=== PATIENT | male | born 1950 | race Caucasian/White ===

== ENCOUNTER 2016-09-24 14:16 | Observation (INO) | payer MEDICAID, MEDICARE ==
[~2016-09-24 14:16] MED LIST: Metoprolol Succinate 100 mg XL Tab PO SCH
[2016-09-24 16:34] LABS: BASO # 0.1 K/uL (0.0-0.2); BASO % 0.9 % (0.0-2.0); EOS # 0.2 K/uL (0.0-0.7); EOS % 4.2 % (0.0-4.0); HEMOGLOBIN 10.9 g/dL (12.0-18.0); LYMPH # 1.6 K/uL (1.0-4.3); LYMPH % 27.6 % (20.0-40.0); MEAN CELL VOLUME 97.8 fl (80.0-94.0); MEAN CORPUSCULAR HEMOGLOBIN 32.8 pg (27.0-31.0); MEAN CORPUSCULAR HGB CONC 33.5 g/dL (33.0-37.0); MEAN PLATELET VOLUME 8.5 fl (7.2-11.7); MONO # 0.7 K/uL (0.0-0.8); MONO % 12.7 % (0.0-10.0); NEUT # 3.1 K/uL (1.8-7.0); NEUT % 54.6 % (50.0-75.0); NRBC % 0.3 % (0.0-0.0); RBC 3.33 Mil/uL (4.40-5.90); RED CELL DISTRIBUTION WIDTH 14.7 % (11.5-14.5); WHITE BLOOD COUNT 5.6 K/uL (4.8-10.8)
--- NOTE | 2016-09-24 16:37 | ED PDOC ---
HPI: Chest Pain Time Seen by Provider: 09/24/16 15:09 Chief Complaint (Nursing): Chest Pain Chief Complaint (Provider): Chest pain History Per: Patient History/Exam Limitations: no limitations Onset/Duration Of Symptoms: Days (x1) Additional Complaint(s): Vivek Govea is a 65 year old male with a past medical history of diabetes, hypertension, chronic shortness of breath, and is on hemodialysis presenting to the ED for bilateral lower neck, bilateral shoulder, and left arm pain occurring since yesterday. The patient states he gets hemodialysis treatments on Mondays, Wednesdays, and Fridays with his last treatment completed yesterday. Since then he has had onset of pain, relieved with sublingual nitroglycerin. The patient states his pain worsens when he is ambulating or lying down. He denies chest pain or palpitations. PMD: Kip Minor MD Past Medical History Reviewed: Historical Data, Nursing Documentation, Vital Signs Vital Signs: Last Vital Signs Temp 98.3 F 09/24/16 14:29 Pulse 70 09/24/16 14:29 Resp 20 09/24/16 14:29 BP 157/73 H 09/24/16 14:29 Pulse Ox 99 09/24/16 16:40 - Medical History PMH: Anemia, CAD, Diabetes, HTN, End Stage Renal Disease, Chronic Kidney Disease Denies: Alzheimer's Disease, Anxiety, Arthritis, Asthma, Atrial Fibrillation , Bipolar Disorder, Bronchitis, Cardia Arrhythmia, CHF, COPD, Crohn's Disease, Dementia, Depression, Diverticulitis, Emphysema, Fractures, Gastritis, Gall Bladder Disease, HIV, Hypercholesterolemia, Hyperthyroidism, Hypothyroidism, Kidney Stones, Migraine, Mitral Valve Prolapse, Multiple Sclerosis, Osteoporosis , Pancreatitis, Paranoia, Parkinson's Disease, Peripheral Edema, Pneumonia, Post Traumatic Stress Disorder, Pulmonary Embolism, Rheumatoid Arthritis, Schizophrenia, Seizures, Sickle Cell Disease, Sexually Transmitted Disease, Sleep Apnea, TIA - Surgical History Surgical History: CABG (December 15, 2013) Denies: Appendectomy, Carotid Endarterectomy, Cholecystectomy, Coronary Stent , Pacemaker, Tonsillectomy - Family History Family History: States: Diabetes - Social History Current smoker - smoking cessation education provided: No Ex-Smoker (has not smoked in the last 12 months): No Alcohol: None Drugs: Denies - Home Medications Home Medications: Ambulatory Orders Medication Instructions Recorded Acetaminophen/Diphenhydramine 1 tab PO HS 08/10/17 [Tylenol Pm Ex-Strength Caplet] Allopurinol [Zyloprim] 100 mg PO DAILY 09/24/16 Aspirin [Ecotrin] 81 mg PO DAILY 09/24/16 Atorvastatin [Lipitor] 40 mg PO DAILY 09/24/16 Cinacalcet [Sensipar] 30 mg PO DAILY 09/24/16 DiphenhydrAMINE [Benadryl] 25 mg PO BID PRN 09/24/16 Docusate [Colace] 100 mg PO DAILY PRN 09/24/16 Ergocalciferol (Vitamin D2) 50,000 unit PO SUN 09/24/16 [Vitamin D2] Insulin Glargine,Hum.rec.anlog 20 unit SC HS 09/24/16 [Lantus] Insulin Lispro [humALOG] 6 unit SC BID 09/24/16 Isosorbide Mononitrate [Imdur] 30 mg PO DAILY 09/24/16 Metoprolol Succinate [Toprol XL] 100 mg PO DAILY 09/24/16 Omeprazole [Omeprazole] 40 mg PO DAILY 09/24/16 Pioglitazone [Actos] 30 mg PO DAILY 09/24/16 Sevelamer Carbonate [Renvela] 2,400 mg PO TID 09/24/16 amLODIPine [Norvasc] 5 mg PO HS 09/24/16 hydrALAZINE [Apresoline] 50 mg PO TID 09/24/16 - Allergies Allergies/Adverse Reactions: Allergies Allergy/AdvReac Type Severity Reaction Status Date / Time codeine Allergy VOMITING Verified 09/24/16 15:35 Penicillins Allergy DIZZINESS Verified 09/24/16 15:35 Review of Systems ROS Statement: Except As Marked, All Systems Reviewed And Found Negative Cardiovascular: Negative for: Chest Pain, Palpitations Musculoskeletal: Positive for: Neck Pain (bilateral lower neck ), Shoulder Pain (bilateral shoulder), Arm Pain (left arm) Physical Exam - Reviewed Nursing Documentation Reviewed: Yes Vital Signs Reviewed: Yes - Physical Exam Appears: Positive for: Well, Non-toxic, No Acute Distress Head Exam: Positive for: ATRAUMATIC, NORMAL INSPECTION, NORMOCEPHALIC Skin: Positive for: Normal Color, Warm, DRY Eye Exam: Positive for: EOMI, Normal appearance, PERRL ENT: Positive for: Normal ENT Inspection Neck: Positive for: Normal, Painless ROM, Supple (no neck tenderness ) Cardiovascular/Chest: Positive for: Regular Rate, Rhythm Respiratory: Positive for: CNT, Normal Breath Sounds Gastrointestinal/Abdominal: Positive for: Normal Exam, Bowel Sounds, Soft Back: Positive for: Normal Inspection. Negative for: L CVA Tenderness, R CVA Tenderness, Vertebral Tenderness Extremity: Positive for: Normal ROM Neurologic/Psych: Positive for: Alert, Oriented - Laboratory Results Result Diagrams: 09/24/16 16:00 09/24/16 17:34 - ECG O2 Sat by Pulse Oximetry: 99 (RA) Pulse Ox Interpretation: Normal Medical Decision Making Medical Decision Makin:09 Impression: bilateral lower neck pain, bilateral shoulder pain, and left arm pain Plan: * ED EKG * COMP Metabolic panel * Troponin I * CBC (With Differential0 * PTT * Prothrombin Time * [RAD] Chest portable * Urinalysis * Reevaluation Scribe Attestation: Documented by Fallon Campbell, acting as a scribe for Gladys Douglass MD. Provider Scribe Attestation: All medical record entries made by the Scribe were at my direction and personally dictated by me. I have reviewed the chart and agree that the record accurately reflects my personal performance of the history, physical exam, medical decision making, and the department course for this patient. I have also personally directed, reviewed, and agree with the discharge instructions and disposition. Disposition - Disposition Forms: [employer] ([place]er)
[2016-09-24 16:58] LABS: INR 1.2 (0.9-1.2); PARTIAL THROMBOPLASTIN TIME 29.6 Seconds (25.6-37.1); PROTHROMBIN TIME 12.6 Seconds (9.8-13.1)
[2016-09-24 17:05] LABS: ALBUMIN 4.3 g/dL (3.5-5.0); BLOOD UREA NITROGEN 57 mg/dl (9-20); GFR AFRICAN-AMERICAN 7; GFR NON-AFRICAN AMERICAN 6
[2016-09-24 17:16] LABS: ALB/GLOB RATIO 1.5 (1.0-2.1); ALT/SGPT 18 U/L (21-72); AST/SGOT 21 U/L (17-59); CALCIUM 9.7 mg/dL (8.4-10.2)
--- NOTE | 2016-09-24 17:27 | RAD ---
HISTORY: Chest pain. COMPARISON: 04/11/2014. FINDINGS: LUNGS: No active pulmonary disease. PLEURA: No significant pleural effusion identified, no pneumothorax apparent. CARDIOVASCULAR: No radiographic findings to suggest acute or significant cardiovascular disease. Incidental Finding(s): Postoperative changes related to sternotomy. OSSEOUS STRUCTURES: No significant abnormalities. VISUALIZED UPPER ABDOMEN: Normal. OTHER FINDINGS: None. IMPRESSION: No active disease. No significant interval change compared to the prior examination(s).
[2016-09-24 18:03] LABS: ALB/GLOB RATIO 1.4 (1.0-2.1); ALBUMIN 4.2 g/dL (3.5-5.0); CALCIUM 9.7 mg/dL (8.4-10.2)
[2016-09-24] MEDS ORDERED: Sod Polystyrene Sulf 15 gm/60 ml Oral Susp PO STA (18:15)
[2016-09-24 18:26] LABS: SQUAMOUS EPITHIAL 1 /hpf (0-5); URINE BACTERIA MANY (<OCC); URINE BILIRUBIN NEGATIVE (NEGATIVE); URINE BLOOD SMALL (NEGATIVE); URINE CLARITY CLOUDY (Clear); URINE COLOR YELLOW (YELLOW); URINE GLUCOSE (UA) >=500 mg/dL (Normal); URINE LEUKOCYTE ESTERASE LARGE Leu/uL (Negative); URINE NITRATE NEGATIVE (NEGATIVE); URINE PROTEIN 100 mg/dL (NEGATIVE); URINE UROBILINOGEN 0.2-1.0 mg/dL (0.2-1.0)
[2016-09-24] MEDS ORDERED: Sod Polystyrene Sulf 15 gm/60 ml Oral Susp ONE (19:00)
[2016-09-25] MEDS ORDERED: Metoprolol Succinate 100 mg XL Tab PO STA (00:41)
[2016-09-25 05:26] LABS: BASO % 0.8 % (0.0-2.0); EOS # 0.3 K/uL (0.0-0.7); EOS % 5.6 % (0.0-4.0); HEMOGLOBIN 10.1 g/dL (12.0-18.0); LYMPH # 1.2 K/uL (1.0-4.3); LYMPH % 22.2 % (20.0-40.0); MEAN CELL VOLUME 96.9 fl (80.0-94.0); MEAN CORPUSCULAR HEMOGLOBIN 31.8 pg (27.0-31.0); MEAN CORPUSCULAR HGB CONC 32.8 g/dL (33.0-37.0); MEAN PLATELET VOLUME 8.5 fl (7.2-11.7); MONO # 0.7 K/uL (0.0-0.8); NEUT # 3.3 K/uL (1.8-7.0); NEUT % 59.4 % (50.0-75.0); RBC 3.18 Mil/uL (4.40-5.90); RED CELL DISTRIBUTION WIDTH 14.1 % (11.5-14.5); WHITE BLOOD COUNT 5.6 K/uL (4.8-10.8)
[2016-09-25 05:34] LABS: ALB/GLOB RATIO 1.4 (1.0-2.1); ALBUMIN 3.9 g/dL (3.5-5.0); CALCIUM 9.4 mg/dL (8.4-10.2)
--- NOTE | 2016-09-25 07:30 | CARD ---
APPROVED REPORT EKG Measurement Heart [id number] <Conclusion> Sinus rhythm with 1st degree AV block Possible Left atrial enlargement Borderline ECG
[2016-09-25] MEDS ORDERED: Pantoprazole 40 mg EC Tab PO SCH (09:00)
[2016-09-25] MEDS ORDERED: Insulin Lispro (humaLOG) 100 Units/ml Inj SC SCH (09:00)
[2016-09-25] MEDS ORDERED: Lidocaine 5% Patch TD SCH (09:00)
[2016-09-25 12:37] VITALS: BP 165/75; PULSE 59; RESP 18; TEMP 97.5; O2SAT 100
--- NOTE | 2016-09-25 12:38 | CP.PCM.PCO ---
Assessment & Plan - Assessment and Plan (Free Text) Assessment: [facility] called; patient scheduled for dialysis at 2:30 pm patient and family notified
[2016-09-25] MEDS ORDERED: INSULIN GLARGINE HUM REC ANLOG 20 UNIT SC SCH (22:00)
[2016-09-25] MEDS ORDERED: ACETAMINOPHEN PO SCH (22:00)
[2016-09-25] MEDS ORDERED: Insulin Detemir 100 Units/ml Inj SC SCH (22:00)
[2016-09-25] MEDS ORDERED: DIPHENHYDRAMINE PO SCH (22:00)
[2016-09-26] MEDS ORDERED: Metoprolol Succinate 100 mg XL Tab PO SCH (09:00)
[2016-09-27] MEDS ORDERED: Ergocalciferol 50,000 Intl Units Cap PO SCH (09:00)
== END 2016-09-25 12:45 | disposition home or self-care (01) ==
LOC: H.ER 14:16 → H.ERHOLD 18:36 → H.TEL 21:10
PROVIDERS: ADMIT Family Medicine; ATTEND Family Medicine
DX: M54.2 Cervicalgia (principal); M25.512 Pain in left shoulder; M25.511 Pain in right shoulder; E11.22 Type 2 diabetes mellitus with diabetic chronic kidney disease; I12.0 Hypertensive chronic kidney disease with stage 5 chronic kidney disease or end stage renal disease; N18.6 End stage renal disease; I25.10 Atherosclerotic heart disease of native coronary artery without angina pectoris; Z79.82 Long term (current) use of aspirin; Z79.899 Other long term (current) drug therapy; Z95.1 Presence of aortocoronary bypass graft; Z99.2 Dependence on renal dialysis
CPT/HCPCS: 36415; 71010; 80053; 81003; 82948; 84484; 85025; 85610; 85730; 93005; 96374; 99283; G0378; J1940

== ENCOUNTER 2017-08-23 11:11 | Observation (INO) | payer MEDICARE, MEDICAID ==
[2017-08-23 12:43] LABS: BASO % 0.6 % (0.0-2.0); EOS # 0.1 K/uL (0.0-0.7); EOS % 3.4 % (0.0-4.0); HEMOGLOBIN 11.8 g/dL (12.0-18.0); LYMPH # 0.9 K/uL (1.0-4.3); LYMPH % 20.1 % (20.0-40.0); MEAN CORPUSCULAR HEMOGLOBIN 33.2 pg (27.0-31.0); MEAN CORPUSCULAR HGB CONC 34.2 g/dL (33.0-37.0); MEAN PLATELET VOLUME 8.9 fl (7.2-11.7); MONO # 0.5 K/uL (0.0-0.8); MONO % 10.2 % (0.0-10.0); NEUT # 2.9 K/uL (1.8-7.0); NEUT % 65.7 % (50.0-75.0); NRBC % 0.1 % (0.0-0.0); RBC 3.54 Mil/uL (4.40-5.90); RED CELL DISTRIBUTION WIDTH 15.3 % (11.5-14.5); WHITE BLOOD COUNT 4.4 K/uL (4.8-10.8)
--- NOTE | 2017-08-23 12:55 | RAD ---
PROCEDURE: CHEST RADIOGRAPH, 1 VIEW HISTORY: CP COMPARISON: 09/24/2016 FINDINGS: LUNGS: Curvilinear opacities in the left lung base. PLEURA: Biapical pleural parenchymal thickening noted. No pleural effusion. No pneumothorax. CARDIOVASCULAR: Stable cardiomediastinal silhouette. OSSEOUS STRUCTURES: Degenerative changes. VISUALIZED UPPER ABDOMEN: Upper abdomen is suboptimally evaluated. Possible surgical clip in the left upper quadrant. OTHER FINDINGS: Presumed vascular stent in the right axilla. IMPRESSION: Minimal curvilinear opacity in the left lung base. No other focal airspace opacity. Other findings above.
[2017-08-23 12:56] LABS: ALB/GLOB RATIO 1.4 (1.0-2.1); ALBUMIN 4.5 g/dL (3.5-5.0); CALCIUM 9.6 mg/dL (8.4-10.2); INR 1.1 (0.9-1.2); PROTHROMBIN TIME 12.3 Seconds (9.8-13.1)
[2017-08-23 12:57] LABS: PARTIAL THROMBOPLASTIN TIME 29.5 Seconds (25.6-37.1)
[2017-08-23 13:07] LABS: TROPONIN I 0.051 ng/mL (0.00-0.120)
--- NOTE | 2017-08-23 14:22 | ED PDOC ---
HPI: Chest Pain Time Seen by Provider: 08/23/17 11:38 Chief Complaint (Nursing): Chest Pain Chief Complaint (Provider): Chest pain History Per: Patient History/Exam Limitations: no limitations Onset/Duration Of Symptoms: Hrs Current Symptoms Are (Timing): Still Present Quality: "Pain" Associated Symptoms: denies: Nausea, Dyspnea, Diaphoresis, Syncope Nitro Therapy Administered: 2, Per Own Supply Additional History Per: Patient Additional Complaint(s): 66yo male, with history of diabetes, CAD, and currently on dialysis (MWF), had dialysis today and was able to complete the entire session, comes to ER for evaluation of chest pain. Patient states while in dialysis, he had pain to his right arm, radiating to his right chest and right neck; he reports the pain is intermittent and worsened after the dialysis. He states the pain was also worsened with walking. Patient reports at 8AM he took Aspirin and at 9:30AM took 2 dose of Nitro SL with improvmenet of pain. Otherwise, patient denies any shortness of breath, dizziness, headache, diaphoresis, fever, chills, cough, nausea, vomiting, back pain. PMD: Dr. Minor Interventional Neuroradiologist: Dr. Pittman Operations Analyst: Dr. Elam Past Medical History Reviewed: Historical Data, Nursing Documentation, Vital Signs Vital Signs: Last Vital Signs Temp 97.8 F 08/23/17 18:22 Pulse 75 08/23/17 18:22 Resp 18 08/23/17 18:22 BP 191/68 H 08/23/17 18:22 Pulse Ox 98 08/23/17 18:22 - Medical History PMH: Anemia, CAD, Diabetes, HTN, End Stage Renal Disease, Chronic Kidney Disease Denies: Alzheimer's Disease, Anxiety, Arthritis, Asthma, Atrial Fibrillation , Bipolar Disorder, Bronchitis, Cardia Arrhythmia, CHF, COPD, Crohn's Disease, Dementia, Depression, Diverticulitis, Emphysema, Fractures, Gastritis, Gall Bladder Disease, HIV, Hypercholesterolemia, Hyperthyroidism, Hypothyroidism, Kidney Stones, Migraine, Mitral Valve Prolapse, Multiple Sclerosis, Osteoporosis , Pancreatitis, Paranoia, Parkinson's Disease, Peripheral Edema, Pneumonia, Post Traumatic Stress Disorder, Pulmonary Embolism, Rheumatoid Arthritis, Schizophrenia, Seizures, Sickle Cell Disease, Sexually Transmitted Disease, Sleep Apnea, TIA - Surgical History Surgical History: CABG (December 15, 2013) Denies: Appendectomy, Carotid Endarterectomy, Cholecystectomy, Coronary Stent , Pacemaker, Tonsillectomy - Family History Family History: States: Diabetes - Living Arrangements Living Arrangements: With Family - Home Medications Home Medications: Ambulatory Orders Medication Instructions Recorded Allopurinol [Zyloprim] 100 mg PO DAILY 09/24/16 Aspirin [Ecotrin] 81 mg PO DAILY 09/24/16 Docusate [Colace] 100 mg PO BID PRN 09/24/16 Ergocalciferol (Vitamin D2) 50,000 unit PO SUN 09/24/16 [Vitamin D2] Insulin Glargine,Hum.rec.anlog 6 unit SC HS 09/24/16 [Lantus] Insulin Lispro [humALOG] 2 - 6 unit SC BID 09/24/16 Isosorbide Mononitrate ER [Imdur 30 mg PO DAILY 09/24/16 ER] Sevelamer Carbonate [Renvela] 2,400 mg PO TID 09/24/16 hydrALAZINE [Apresoline] 50 mg PO Q8 09/24/16 Esomeprazole Magnesium [Nexium] 40 mg PO DAILY 08/23/17 Ferrous Sulfate [Ferrous Sulfate] 325 mg PO TID 08/23/17 Ibuprofen [Motrin Tab] 600 mg PO Q8 PRN 08/23/17 Linaclotide [Linzess] 72 mcg PO DAILY PRN 08/23/17 Loperamide [Imodium] 2 mg PO PRN PRN 08/23/17 Metoprolol Succinate XL [Toprol XL] 100 mg PO Q12 08/23/17 Nitroglycerin [Nitrostat] 0.4 mg SL Q5MIN PRN 08/23/17 traMADol [Ultram] 50 mg PO Q12 PRN 08/23/17 - Allergies Allergies/Adverse Reactions: Allergies Allergy/AdvReac Type Severity Reaction Status Date / Time codeine Allergy VOMITING Verified 08/23/17 11:36 Penicillins Allergy DIZZINESS Verified 08/23/17 11:36 Review of Systems ROS Statement: Except As Marked, All Systems Reviewed And Found Negative Constitutional: Negative for: Fever, Chills, Weakness Cardiovascular: Positive for: Chest Pain Respiratory: Negative for: Cough, Shortness of Breath Gastrointestinal: Negative for: Nausea, Vomiting Musculoskeletal: Positive for: Neck Pain, Shoulder Pain, Arm Pain. Negative for : Back Pain Neurological: Negative for: Headache, Dizziness Physical Exam - Reviewed Nursing Documentation Reviewed: Yes Vital Signs Reviewed: Yes - Physical Exam Comments: GENERAL APPEARANCE: Patient is awake, alert, oriented x 3, in mild painful distress. SKIN: Warm, dry; (-) cyanosis. EYES: (-) conjunctival pallor. ENMT: Mucous membranes moist. NECK: (-) tenderness, (-) stiffness, (-) lymphadenopathy, (-) JVD. CHEST AND RESPIRATORY: (-) rash, (-) chest wall tenderness. Lungs: (-) rales , (-) rhonchi, (-) wheezes, (-) rub; breath sounds equal bilaterally. HEART AND CARDIOVASCULAR: (-) irregularity; (-) murmur, (-) gallop, (-) rub. ABDOMEN AND GI: Soft; (-) distention, (-) tenderness, (-) palpable pulsatile mass. EXTREMITIES: (-) deformity; (-) edema, (-) calf tenderness. (+) distal pulses. (+) AV Fistula right upper inner arm NEURO AND PSYCH: Mental status as above. Cranial nerves grossly intact; strength symmetric. - Laboratory Results Result Diagrams: 08/23/17 12:30 08/23/17 12:30 - ECG ECG: Positive for: Interpreted By Me, Viewed By Me ECG Rhythm: Positive for: Sinus Rhythm, 1st Degree Heart Block. Negative for: ST/T Changes Interpretation Of ECG: Prolonged QT Rate: 83 O2 Sat by Pulse Oximetry: 100 (RA) Pulse Ox Interpretation: Normal Medical Decision Making Medical Decision Making: Impression: Chest pain Plan: -- Labs -- EKG -- CXR -- Aspirin 325mg PO Progress: CXR : NAD, as read by PA. Patient advised that official radiology read of XR is still pending and will call the patient if there is any discrepancy within 24 hours. Labs reviewed, troponin negative. BUN: 30 Creatinine: 6.1 Considering symptoms are highly indicative of ACS, patient to be placed in inpatient observation in Tele to r/o ACS. Case discussed with Dr. Minor, patient's PMD who accepts patient for admission. On re-evaluation, patient reports improvement of symptoms, denies any chest pain , SOB, arm pain or back pain. On exam, patient remains AAOx3, in no acute distress. Diagnostic results d/w the patient in great detail. Patient states he agrees with further plan of care. I have given the patient opportunity to ask any additional questions. Scribe Attestation: Documented by Paola Vee acting as a scribe for Laurie Wills PA-C. Provider Scribe Attestation: All medical record entries made by the Scribe were at my direction and personally dictated by me. I have reviewed the chart and agree that the record accurately reflects my personal performance of the history, physical exam, medical decision making, and the department course for this patient. I have also personally directed, reviewed, and agree with the discharge instructions and disposition. Disposition - Clinical Impression Clinical Impression: Chest pain - Patient ED Disposition Is Patient to be Admitted: Yes Counseled Patient/Family Regarding: Studies Performed, Diagnosis - Disposition Disposition Time: 14:30 Condition: STABLE - Pt Status Changed To: Hospital Disposition Of: Observation (telemetry) - PA / [employer] RET[employer]OFIT ARCHITECT / Resident Statement FARZANEH has reviewed & agrees with the documentation as recorded.
[2017-08-23] MEDS ORDERED: Glucagon Recombinant 1 mg Inj IM PRN (18:54)
[2017-08-23] MEDS ORDERED: Dextrose 50% SYRINGE Inj (50 ml) IV PRN (18:54)
--- NOTE | 2017-08-23 20:58 | CARD ---
APPROVED REPORT EKG Measurement Heart [id number] <Conclusion> Sinus rhythm with 1st degree AV block Possible Left atrial enlargement Left ventricular hypertrophy with repolarization abnormality Prolonged QT Abnormal ECG
[2017-08-23] MEDS: Metoprolol Succinate 100 mg XL Tab PO SCH (21:33)
[2017-08-23] MEDS: Insulin Detemir 100 Units/ml Inj SC SCH (23:00)
[2017-08-24] MEDS: Insulin Lispro (humaLOG) 100 Units/ml Inj SC SCH ×3 (08:30→17:21)
[2017-08-24] MEDS: ESOMEPRAZOLE 40 MG PO SCH (08:33)
[2017-08-24] MEDS: Metoprolol Succinate 100 mg XL Tab PO SCH ×2 (08:34→22:14)
[2017-08-24] MEDS ORDERED: Pantoprazole 40 mg EC Tab PO SCH (09:00)
[2017-08-24] MEDS ORDERED: Sevelamer Carb 0.8 gm/Packet PO SCH (09:00)
--- NOTE | 2017-08-24 11:03 | CP.PCM.HP ---
History of Present Illness - History of Present Illness History of Present Illness: Jeferson Doyle is a 66 yo M, PM dabetes, CAD, ESRD (currently on dialysis MWF) who presented to ED last night with complaint of pain in R arm/R chest that started during his dialysis session yesterday. He was able to complete the dialysis session and came to ED afterwards. Aggravating factors: walking. Denies any shortness of breath, dizziness, headache, diaphoresis, fever, chills , cough, nausea, vomiting, back pain. PMD: Dr. Minor Marketing Finance Manager: Dr. Pittman Reel Assembler: Dr. Elam Present on Admission - Present on Admission Any Indicators Present on Admission: Yes History of Uncontrolled Diabetes: Yes Review of Systems - Review of Systems All systems: reviewed and no additional remarkable complaints except (as per HPI ) Past Patient History - Past Medical History & Family History Past Medical History?: Yes - Past Social History Smoking Status: Never Smoked - CARDIAC Hx Atrial Fibrillation: No Hx Cardia Arrhythmia: No Hx Congestive Heart Failure: No Hx Hypercholesterolemia: No Hx Hypertension: Yes Hx Mitral Valve Prolapse: No Hx Pacemaker: No Hx Peripheral Edema: No - PULMONARY Hx Asthma: No Hx Bronchitis: No Hx Chronic Obstructive Pulmonary Disease (COPD): No Hx Emphysema: No Hx Pneumonia: No Hx Pulmonary Embolism: No Hx Sleep Apnea: No - NEUROLOGICAL Hx Alzheimer's Disease: No Hx Dementia: No Hx Migraine: No Hx Multiple Sclerosis: No Hx Parkinson's Disease: No Hx Seizures: No Hx Transient Ischemic Attacks (TIA): No - HEENT Hx Blind: No (Diabetes retinopathy) - RENAL Hx Chronic Kidney Disease: Yes (on dialysis) Hx Kidney Stones: No - ENDOCRINE/METABOLIC Hx Hyperthyroidism: No Hx Hypothyroidism: No - HEMATOLOGICAL/ONCOLOGICAL Hx Anemia: Yes Hx Human Immunodeficiency Virus (HIV): No Hx Sickle Cell Disease: No - INTEGUMENTARY Hx Dermatological Problems: No - MUSCULOSKELETAL/RHEUMATOLOGICAL Hx Arthritis: No Hx Fractures: No Hx Osteoporosis: No Hx Rheumatoid Arthritis: No - GENITOURINARY/GYNECOLOGICAL Hx Sexually Transmitted Disorders: No - PSYCHIATRIC Hx Anxiety: No Hx Bipolar Disorder: No Hx Depression: No Hx Paranoia: No Hx Post Traumatic Stress Disorder: No Hx Schizophrenia: No - SURGICAL HISTORY Hx Appendectomy: No Hx Carotid Endarterectomy: No Hx Cholecystectomy: No Hx Coronary Artery Bypass Graft: Yes (December 15, 2013) Hx Coronary Stent: No Hx Tonsillectomy: No - ANESTHESIA Hx Anesthesia: Yes Hx Anesthesia Reactions: No Hx Malignant Hyperthermia: No Meds Allergies/Adverse Reactions: Allergies Allergy/AdvReac Type Severity Reaction Status Date / Time codeine Allergy VOMITING Verified 08/23/17 11:36 Penicillins Allergy DIZZINESS Verified 08/23/17 11:36 Physical Exam - Constitutional Appears: Non-toxic, No Acute Distress - Head Exam Head Exam: NORMAL INSPECTION - Eye Exam Eye Exam: Normal appearance - ENT Exam ENT Exam: Mucous Membranes Moist - Respiratory Exam Respiratory Exam: NORMAL BREATHING PATTERN. absent: Respiratory Distress - Cardiovascular Exam Cardiovascular Exam: REGULAR RHYTHM - GI/Abdominal Exam GI & Abdominal Exam: Soft - Extremities Exam Additional comments: AV fistula in RUE - Neurological Exam Neurological exam: Alert Results - Vital Signs Recent Vital Signs: Last Vital Signs Temp 98 F 08/24/17 08:22 Pulse 66 08/24/17 09:53 Resp 18 08/24/17 08:22 BP 160/64 H 08/24/17 09:53 Pulse Ox 99 08/24/17 08:22 - Labs Result Diagrams: 08/23/17 12:30 08/23/17 12:30 Labs: Laboratory Results - last 24 hr 08/23/17 08/23/17 08/23/17 12:30 12:30 12:30 WBC 4.4 L RBC 3.54 L Hgb 11.8 L Hct 34.4 L MCV 97.0 H MCH 33.2 H MCHC 34.2 RDW 15.3 H Plt Count 189 MPV 8.9 Neut % (Auto) 65.7 Lymph % (Auto) 20.1 Meagher % (Auto) 10.2 H Eos % (Auto) 3.4 Baso % (Auto) 0.6 Neut # (Auto) 2.9 Lymph # (Auto) 0.9 L Meagher # (Auto) 0.5 Eos # (Auto) 0.1 Baso # (Auto) 0.0 PT 12.3 INR 1.1 APTT 29.5 Sodium 145 Potassium 5.0 Chloride 93 L Carbon Dioxide 38 H Anion Gap 19 BUN 30 H Creatinine 6.1 H Est GFR ( Amer) 11 Est GFR (Non-Af Amer) 9 POC Glucose (mg/dL) Random Glucose 248 H Calcium 9.6 Total Bilirubin 0.9 AST 47 ALT 28 Alkaline Phosphatase 98 Troponin I 0.0510 Total Protein 7.8 Albumin 4.5 Globulin 3.3 Albumin/Globulin Ratio 1.4 08/23/17 08/24/17 08/24/17 20:31 05:02 10:47 WBC RBC Hgb Hct MCV MCH MCHC RDW Plt Count MPV Neut % (Auto) Lymph % (Auto) Meagher % (Auto) Eos % (Auto) Baso % (Auto) Neut # (Auto) Lymph # (Auto) Meagher # (Auto) Eos # (Auto) Baso # (Auto) PT INR APTT Sodium Potassium Chloride Carbon Dioxide Anion Gap BUN Creatinine Est GFR ( Amer) Est GFR (Non-Af Amer) POC Glucose (mg/dL) 161 H 166 H Random Glucose Calcium Total Bilirubin AST ALT Alkaline Phosphatase Troponin I 0.0910 Total Protein Albumin Globulin Albumin/Globulin Ratio Assessment & Plan (1) Chest pain Status: Acute (2) CAD (coronary artery disease), autologous vein bypass graft Status: Chronic (3) DM type 2 (diabetes mellitus, type 2) Status: Chronic (4) ESRD (end stage renal disease) Status: Chronic (5) Hypertension Status: Chronic - Assessment and Plan (Free Text) Plan: - Chest pain - improving. Troponin neg x3. - Cardiology consult - Dr. Weems - Resume home meds; additional hydralazine for BP control, insulin coverage scale and hypoglycemia protocol - Possible d/c today if cleared by cardio
[2017-08-24] MEDS: Insulin Detemir 100 Units/ml Inj SC SCH (22:14)
--- NOTE | 2017-08-25 08:14 | CP.PCM.CON ---
History of Present Illness - History of Present Illness History of Present Illness: I was asked to evaluate pt. his primary seamless hosiery knitter is Dr Pittman. Patient has a history of HTN, CAD ESRD who presents with elevated blood pressure. The patient has no active chest pain but at times has pain at the dialysis site. Review of Systems - Constitutional Constitutional: absent: As Per HPI, Anorexia, Chills, Daytime Sleepiness, Excessive Sweating, Fatigue, Fever, Frequent Falls, Headache, Increased Appetite , Lethargy, Malaise, Night Sweats, Snoring, Sleep Apnea, Weight Gain, Weight Loss, Weakness, Other - EENT Eyes: absent: As Per HPI, Blind Spots, Blurred Vision, Change in Vision, Decreased Night Vision, Diplopia, Discharge, Dry Eye, Exophthalmos, Floaters, Irritation, Itchy Eyes, Loss of Peripheral Vision, Pain, Photophobia, Requires Corrective Lenses, Sees Flashes, Spots in Vision, Tunnel Vision, Other Visual Disturbances, Loss of Vision, Other Ears: absent: As Per HPI, Decreased Hearing, Ear Discharge, Ear Pain, Tinnitus, Abnormal Hearing, Disequilibrium, Dizziness, Other Nose/Mouth/Throat: absent: As Per HPI, Epistaxis, Nasal Congestion, Nasal Discharge, Nasal Obstruction, Nasal Trauma, Nose Pain, Post Nasal Drip, Sinus Pain, Sinus Pressure, Bleeding Gums, Change in Voice, Dental Pain, Dry Mouth, Dysphagia, Halitosis, Hoarsness, Lip Swelling, Mouth Lesions, Mouth Pain, Odynophagia, Sore Throat, Throat Swelling, Tongue Swelling, Facial Pain, Neck Pain, Neck Mass, Other - Cardiovascular Cardiovascular: absent: As Per HPI, Acrocyanosis, Chest Pain, Chest Pain at Rest , Chest Pain with Activity, Claudication, Diaphoresis, Dyspnea, Dyspnea on Exertion, Edema, Irregular Heart Rhythm, Pain Radiating to Arm/Neck/Jaw, Leg Edema, Leg Ulcers, Lightheadedness, Orthopnea, Palpitations, Paroxysmal Nocturnal Dyspnea, Pedal Edema, Radiating Pain, Rapid Heart Rate, Slow Heart Rate, Syncope, Other - Respiratory Respiratory: absent: As Per HPI, Cough, Dyspnea, Hemoptysis, Dyspnea on Exertion , Wheezing, Snoring, Stridor, Pain on Inspiration, Chest Congestion, Excessive Mucous Production, Change in Mucous Color, Pain with Coughing, Other - Gastrointestinal Gastrointestinal: absent: As Per HPI, Abdominal Pain, Belching, Bloating, Change in Bowel Habits, Change in Stool Character, Coffee Ground Emesis, Constipation, Cramping, Diarrhea, Dyspepsia, Dysphagia, Early Satiety, Excessive Flatus, Fecal Incontinence, Heartburn, Hematemesis, Hematochezia, Loose Stools, Melena, Nausea, Odynophagia, Temesmus, Vomiting, Other - Genitourinary Genitourinary: absent: As Per HPI, Change in Urinary Stream, Difficulty Urinating, Dysuria, Flank Pain, Hematuria, Pyuria, Nocturia, Urinary Incontinence, Urinary Frequency, Urinary Hesitance, Urinary Urgency, Voiding Freq/Small Amts, Freq UTI, Hx Renal/Bladder Calculi, Hx /Renal Surgery, Bladder Distension, Other - Integumentary Integumentary: absent: As Per HPI, Acne, Alopecia, Bleeding Lesions, Change in Hair, Change in Nails, Change in Pigmentation, Changing Lesions, Dry Skin, Erythema, Furuncle, Hirsutism, Lesions, New Lesions, Non-Healing Lesions, Photosensitivity, Pruritus, Rash, Skin Pain, Skin Ulcer, Sores, Striae, Swelling , Unusual Bruising, Wounds, Jaundice, Other - Neurological Neurological: absent: As Per HPI, Abnormal Gait, Abnormal Hearing, Abnormal Movements, Abnormal Speech, Behavioral Changes, Burning Sensations, Confusion, Convulsions, Disequilibrium, Dizziness, Numbness, Focal Weakness, Frequent Falls , Headaches, Lack of Coordination, Loss of Vision, Memory Loss, Paresthesias, Radicular Pain, Restless Legs, Sensory Deficit, Syncope, Tingling, Tremor, Vertigo, Weakness, Other Visual Disturbances, Other - Psychiatric Psychiatric: absent: As Per HPI, Abnormal Sleep Pattern, Anhedonia, Anxiety, Auditory Hallucinations, Behavioral Changes, Change in Appetite, Change in Libido, Confusion, Depression, Difficulty Concentrating, Hallucinations, Homicidal Ideation, Hopelessness, Irritability, Memory Loss, Mood Swings, Panic Attacks, Paranoia, Suicidal Ideation, Visual Hallucinations, Tactile Hallucinations, Other - Endocrine Endocrine: absent: As Per HPI, Change in Body Appearance, Change in Libido, Cold Intolorance, Deepening of Voice, Excessive Sweating, Fatigue, Flushing, Heat Intolorance, Increase in Ring/Shoe/Hat Size, Palpitations, Polydipsia, Polyphagia, Polyuria, Other - Hematologic/Lymphatic Hematologic: absent: As Per HPI, Easy Bleeding, Easy Bruising, Lymphadenopathy, Other Past Patient History - Past Medical History & Family History Past Medical History?: Yes - Past Social History Smoking Status: Never Smoked - CARDIAC Hx Atrial Fibrillation: No Hx Cardia Arrhythmia: No Hx Congestive Heart Failure: No Hx Hypercholesterolemia: No Hx Hypertension: Yes Hx Mitral Valve Prolapse: No Hx Pacemaker: No Hx Peripheral Edema: No - PULMONARY Hx Asthma: No Hx Bronchitis: No Hx Chronic Obstructive Pulmonary Disease (COPD): No Hx Emphysema: No Hx Pneumonia: No Hx Pulmonary Embolism: No Hx Sleep Apnea: No - NEUROLOGICAL Hx Alzheimer's Disease: No Hx Dementia: No Hx Migraine: No Hx Multiple Sclerosis: No Hx Parkinson's Disease: No Hx Seizures: No Hx Transient Ischemic Attacks (TIA): No - HEENT Hx Blind: No (Diabetes retinopathy) - RENAL Hx Chronic Kidney Disease: Yes (on dialysis) Hx Kidney Stones: No - ENDOCRINE/METABOLIC Hx Hyperthyroidism: No Hx Hypothyroidism: No - HEMATOLOGICAL/ONCOLOGICAL Hx Anemia: Yes Hx Human Immunodeficiency Virus (HIV): No Hx Sickle Cell Disease: No - INTEGUMENTARY Hx Dermatological Problems: No - MUSCULOSKELETAL/RHEUMATOLOGICAL Hx Arthritis: No Hx Fractures: No Hx Osteoporosis: No Hx Rheumatoid Arthritis: No - GASTROINTESTINAL Hx Crohn's Disease: No Hx Diverticulitis: No Hx Gall Bladder Disease: No Hx Gastritis: No Hx Pancreatitis: No - GENITOURINARY/GYNECOLOGICAL Hx Sexually Transmitted Disorders: No - PSYCHIATRIC Hx Anxiety: No Hx Bipolar Disorder: No Hx Depression: No Hx Paranoia: No Hx Post Traumatic Stress Disorder: No Hx Schizophrenia: No - SURGICAL HISTORY Hx Appendectomy: No Hx Carotid Endarterectomy: No Hx Cholecystectomy: No Hx Coronary Artery Bypass Graft: Yes (December 15, 2013) Hx Coronary Stent: No Hx Tonsillectomy: No - ANESTHESIA Hx Anesthesia: Yes Hx Anesthesia Reactions: No Hx Malignant Hyperthermia: No Meds Home Medications: Home Medication List Medication Instructions Recorded Confirmed Type hydrALAZINE [Apresoline] 100 mg PO Q8 #90 tab 08/24/17 Rx Allergies/Adverse Reactions: Allergies Allergy/AdvReac Type Severity Reaction Status Date / Time codeine Allergy VOMITING Verified 08/23/17 11:36 Penicillins Allergy DIZZINESS Verified 08/23/17 11:36 - Medications Medications: Current Medications Allopurinol (Zyloprim) 100 mg PO DAILY [facility] Last Admin: 08/24/17 08:35 Dose: 100 mg Aspirin (Ecotrin) 81 mg PO DAILY [facility] Last Admin: 08/24/17 08:30 Dose: 81 mg Dextrose (Dextrose 50% Inj) 0 ml IV STAT PRN; Protocol PRN Reason: Hypoglycemia Protocol Dextrose (Glutose 15) 0 gm PO ONCE PRN; Protocol PRN Reason: Hypoglycemia Protocol Docusate Sodium (Colace) 100 mg PO BID PRN PRN Reason: Constipation Ergocalciferol (Drisdol 50,000 Intl Units Cap) 1 cap PO SUN [facility] Glucagon (Glucagen Diagnostic Kit) 0 mg IM STAT PRN; Protocol PRN Reason: Hypoglycemia Protocol Heparin Sodium (Porcine) (Heparin) 5,000 units SC Q12 [facility] PRN Reason: Protocol Last Admin: 08/24/17 22:13 Dose: 5,000 units Home Med (Patient's Own Medication) 40 unit PO DAILY [facility] Last Admin: 08/24/17 08:33 Dose: 40 unit Home Med (Linaclotide [Linzess]) 72 mcg PO DAILY [facility] Hydralazine HCl (Apresoline) 100 mg PO Q8@0700,1500,2300 [facility] Last Admin: 08/25/17 06:58 Dose: 100 mg Ibuprofen (Motrin Tab) 600 mg PO Q8 PRN PRN Reason: Pain, moderate (4-7) Insulin Detemir (Levemir) 6 units SC HS [facility] Last Admin: 08/24/17 22:14 Dose: 6 units Insulin Human Lispro (Humalog) 0 units SC TIDAC [facility] PRN Reason: Protocol Last Admin: 08/24/17 17:21 Dose: 2 units Isosorbide Mononitrate (Imdur Er) 30 mg PO DAILY [facility] Last Admin: 08/24/17 08:32 Dose: 30 mg Loperamide HCl (Imodium) 2 mg PO PRN PRN PRN Reason: Diarrhea Metoprolol Succinate (Toprol Xl) 100 mg PO Q12 [facility] Last Admin: 08/24/17 22:14 Dose: 100 mg Nitroglycerin (Nitrostat Sl Tab) 0.4 mg SL Q5MIN PRN PRN Reason: chest pain Sevelamer HCl (Renagel) 2,400 mg PO TIDWM [facility] Last Admin: 08/24/17 17:20 Dose: 2,400 mg Tramadol HCl (Ultram) 50 mg PO Q12 PRN PRN Reason: Pain, severe (8-10) Physical Exam - Constitutional Appears: Non-toxic - Head Exam Head Exam: NORMAL INSPECTION - Eye Exam Eye Exam: Normal appearance - ENT Exam ENT Exam: Mucous Membranes Moist - Neck Exam Neck exam: Positive for: Full Rom - Respiratory Exam Respiratory Exam: NORMAL BREATHING PATTERN - Cardiovascular Exam Cardiovascular Exam: REGULAR RHYTHM - GI/Abdominal Exam GI & Abdominal Exam: Normal Bowel Sounds - Rectal Exam Rectal Exam: Deferred - Extremities Exam Extremities exam: Positive for: normal inspection - Back Exam Back exam: NORMAL INSPECTION - Neurological Exam Neurological exam: Alert, Oriented x3 - Psychiatric Exam Psychiatric exam: Normal Affect - Skin Skin Exam: Normal Color Results - Vital Signs Recent Vital Signs: Last Vital Signs Temp 97.9 F 08/25/17 08:00 Pulse 59 L 08/25/17 08:00 Resp 18 08/25/17 08:00 BP 189/72 H 08/25/17 08:00 Pulse Ox 100 08/25/17 08:00 - Labs Result Diagrams: 08/23/17 12:30 08/23/17 12:30 Labs: Laboratory Results - last 24 hr 08/24/17 08/24/17 08/24/17 10:38 10:47 16:18 POC Glucose (mg/dL) 166 H 174 H Troponin I 0.0880 08/24/17 08/25/17 21:20 05:36 POC Glucose (mg/dL) 155 H 126 H Troponin I - EKG Data EKG Interpreted by: Myself EKG shows normal: Sinus rhythm Assessment & Plan (1) CKD (chronic kidney disease) stage 5, GFR less than 15 ml/min Status: Acute (2) DM type 2 (diabetes mellitus, type 2) Status: Chronic (3) ESRD (end stage renal disease) Status: Chronic (4) Hypertension Assessment and Plan: markedly elevated blood pressure. recommend adjsutment. will titrate medication and likely discharge with outpatient follow up with Dr Pittman. Status: Chronic
[2017-08-25] MEDS: Insulin Lispro (humaLOG) 100 Units/ml Inj SC SCH ×3 (09:07→16:45)
[2017-08-25] MEDS: ESOMEPRAZOLE 40 MG PO SCH (09:10)
[2017-08-25] MEDS: Metoprolol Succinate 100 mg XL Tab PO SCH (09:12)
--- NOTE | 2017-08-25 12:12 | CARD ---
APPROVED REPORT Date of service: 08/24/2017 EKG Measurement Heart [id number] <Conclusion> Sinus rhythm with 1st degree AV block Otherwise normal ECG
[2017-08-25 12:36] VITALS: O2SAT 99
--- NOTE | 2017-08-25 13:27 | CP.PCM.CON ---
History of Present Illness - History of Present Illness History of Present Illness: This patient however is 66 years of age male with end stage renal disease on maintenance hemodialysis Wednesday. Patient was complaining last hemodialysis on Wednesday of pain in the right upper arm where he has AV fistula also patient has been extended to that chest pain. Blood pressure became elevated and patient given antihypertensive medication continue to rise. I was called to see him this morning. 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 absent: Chest Pain, Edema - Respiratory Respiratory: Dyspnea on Exertion. absent: Cough, Hemoptysis - Gastrointestinal Gastrointestinal: absent: Abdominal Pain, Dysphagia, Vomiting - Genitourinary Genitourinary: Nocturia - Reproductive: Male Reproductive:Male: Sexual Dysfunction - Musculoskeletal Musculoskeletal: absent: Abnormal Gait - Neurological Neurological: absent: Abnormal Gait - Endocrine Endocrine: Fatigue - Hematologic/Lymphatic Hematologic: absent: Easy Bleeding Past Patient History - Past Medical History & Family History Past Medical History?: Yes - Past Social History Smoking Status: Never Smoked - CARDIAC Hx Atrial Fibrillation: No Hx Cardia Arrhythmia: No Hx Congestive Heart Failure: No Hx Hypercholesterolemia: No Hx Hypertension: Yes Hx Mitral Valve Prolapse: No Hx Pacemaker: No Hx Peripheral Edema: No - PULMONARY Hx Asthma: No Hx Bronchitis: No Hx Chronic Obstructive Pulmonary Disease (COPD): No Hx Emphysema: No Hx Pneumonia: No Hx Pulmonary Embolism: No Hx Sleep Apnea: No - NEUROLOGICAL Hx Alzheimer's Disease: No Hx Dementia: No Hx Migraine: No Hx Multiple Sclerosis: No Hx Parkinson's Disease: No Hx Seizures: No Hx Transient Ischemic Attacks (TIA): No - HEENT Hx Blind: No (Diabetes retinopathy) - RENAL Hx Chronic Kidney Disease: Yes (on dialysis) Hx Kidney Stones: No - ENDOCRINE/METABOLIC Hx Hyperthyroidism: No Hx Hypothyroidism: No - HEMATOLOGICAL/ONCOLOGICAL Hx Anemia: Yes Hx Human Immunodeficiency Virus (HIV): No Hx Sickle Cell Disease: No - INTEGUMENTARY Hx Dermatological Problems: No - MUSCULOSKELETAL/RHEUMATOLOGICAL Hx Arthritis: No Hx Fractures: No Hx Osteoporosis: No Hx Rheumatoid Arthritis: No - GASTROINTESTINAL Hx Crohn's Disease: No Hx Diverticulitis: No Hx Gall Bladder Disease: No Hx Gastritis: No Hx Pancreatitis: No - GENITOURINARY/GYNECOLOGICAL Hx Sexually Transmitted Disorders: No - PSYCHIATRIC Hx Anxiety: No Hx Bipolar Disorder: No Hx Depression: No Hx Paranoia: No Hx Post Traumatic Stress Disorder: No Hx Schizophrenia: No - SURGICAL HISTORY Hx Appendectomy: No Hx Carotid Endarterectomy: No Hx Cholecystectomy: No Hx Coronary Artery Bypass Graft: Yes (December 15, 2013) Hx Coronary Stent: No Hx Tonsillectomy: No - ANESTHESIA Hx Anesthesia: Yes Hx Anesthesia Reactions: No Hx Malignant Hyperthermia: No Meds Home Medications: Home Medication List Medication Instructions Recorded Confirmed Type hydrALAZINE [Apresoline] 100 mg PO Q8 #90 tab 08/24/17 Rx Allergies/Adverse Reactions: Allergies Allergy/AdvReac Type Severity Reaction Status Date / Time codeine Allergy VOMITING Verified 08/23/17 11:36 Penicillins Allergy DIZZINESS Verified 08/23/17 11:36 - Medications Medications: Current Medications Allopurinol (Zyloprim) 100 mg PO DAILY [facility] Last Admin: 08/25/17 09:17 Dose: 100 mg Aspirin (Ecotrin) 81 mg PO DAILY [facility] Last Admin: 08/25/17 09:16 Dose: 81 mg Dextrose (Dextrose 50% Inj) 0 ml IV STAT PRN; Protocol PRN Reason: Hypoglycemia Protocol Dextrose (Glutose 15) 0 gm PO ONCE PRN; Protocol PRN Reason: Hypoglycemia Protocol Docusate Sodium (Colace) 100 mg PO BID PRN PRN Reason: Constipation Last Admin: 08/25/17 09:14 Dose: 100 mg Ergocalciferol (Drisdol 50,000 Intl Units Cap) 1 cap [facility] Glucagon (Glucagen Diagnostic Kit) 0 mg IM STAT PRN; Protocol PRN Reason: Hypoglycemia Protocol Heparin Sodium (Porcine) (Heparin) 5,000 units SC Q12 [facility] PRN Reason: Protocol Last Admin: 08/25/17 09:16 Dose: 5,000 units Home Med (Patient's Own Medication) 40 unit PO DAILY [facility] Last Admin: 08/25/17 09:10 Dose: 40 unit Home Med (Linaclotide [Linzess]) 72 mcg PO DAILY [facility] Last Admin: 08/25/17 09:12 Dose: 72 mcg Hydralazine HCl (Apresoline) 100 mg PO Q8@0700,1500,2300 [facility] Last Admin: 08/25/17 06:58 Dose: 100 mg Ibuprofen (Motrin Tab) 600 mg PO Q8 PRN PRN Reason: Pain, moderate (4-7) Insulin Detemir (Levemir) 6 units SC HS [facility] Last Admin: 08/24/17 22:14 Dose: 6 units Insulin Human Lispro (Humalog) 0 units SC TIDAC [facility] PRN Reason: Protocol Last Admin: 08/25/17 11:30 Dose: 4 units Isosorbide Mononitrate (Imdur Er) 30 mg PO DAILY [facility] Last Admin: 08/25/17 09:17 Dose: 30 mg Loperamide HCl (Imodium) 2 mg PO PRN PRN PRN Reason: Diarrhea Losartan Potassium (Cozaar) 100 mg PO DAILY [facility] Last Admin: 08/25/17 09:09 Dose: 100 mg Metoprolol Succinate (Toprol Xl) 100 mg PO Q12 [facility] Last Admin: 08/25/17 09:12 Dose: 100 mg Nitroglycerin (Nitrostat Sl Tab) 0.4 mg SL Q5MIN PRN PRN Reason: chest pain Sevelamer HCl (Renagel) 2,400 mg PO TIDWM [facility] Last Admin: 08/25/17 12:50 Dose: 2,400 mg Tramadol HCl (Ultram) 50 mg PO Q12 PRN PRN Reason: Pain, severe (8-10) Physical Exam - Constitutional Appears: No Acute Distress - Eye Exam Eye Exam: absent: Conjunctival injection - ENT Exam ENT Exam: Mucous Membranes Moist - Neck Exam Neck exam: Negative for: Lymphadenopathy - Respiratory Exam Respiratory Exam: NORMAL BREATHING PATTERN - Cardiovascular Exam Cardiovascular Exam: absent: Gallop, JVD - GI/Abdominal Exam GI & Abdominal Exam: Normal Bowel Sounds. absent: Firm, Guarding - Extremities Exam Extremities exam: Negative for: calf tenderness - Back Exam Back exam: absent: CVA tenderness (L), CVA tenderness (R) - Neurological Exam Neurological exam: Alert - Psychiatric Exam Psychiatric exam: Normal Affect Results - Vital Signs Recent Vital Signs: Last Vital Signs Temp 97.5 F L 08/25/17 12:35 Pulse 62 08/25/17 12:35 Resp 18 08/25/17 12:35 BP 180/65 H 08/25/17 12:35 Pulse Ox 99 08/25/17 12:35 - Labs Result Diagrams: 08/23/17 12:30 08/23/17 12:30 Labs: Laboratory Results - last 24 hr 08/24/17 08/24/17 08/25/17 16:18 21:20 05:36 POC Glucose (mg/dL) 174 H 155 H 126 H 08/25/17 10:53 POC Glucose (mg/dL) 297 H Assessment & Plan (1) ESRD (end stage renal disease) on dialysis Assessment and Plan: Patient with end stage renal disease Patient is scheduled to have dialysis shortly consent was taken I spoke to the son knows at the bedside and to the patient Hypertension blood pressure is still elevated a today's expected to come down perhaps after dialysis after ultrafiltration of 2500 mL Hyperphosphatemia continue phosphorus binders Secondary hyperparathyroidism Anemia continue EPO Status: Acute (2) Chest pain Status: Acute
--- NOTE | 2017-08-25 17:44 | CP.PCM.DIS ---
Provider - Provider Date of Admission: 08/23/17 14:37 Attending physician: Kip Minor MD Primary care physician: Kip Minor MD Consults: cardiology - Dr. Weems Diagnosis - Discharge Diagnosis (1) Chest pain Status: Acute (2) CAD (coronary artery disease), autologous vein bypass graft Status: Chronic (3) DM type 2 (diabetes mellitus, type 2) Status: Chronic (4) ESRD (end stage renal disease) Status: Chronic (5) Hypertension Status: Chronic Hospital Course - Lab Results Lab Results: Most Recent Lab Values WBC 4.4 K/uL (4.8-10.8) L 08/23/17 12:30 RBC 3.54 Mil/uL (4.40-5.90) L 08/23/17 12:30 Hgb 11.8 g/dL (12.0-18.0) L 08/23/17 12:30 Hct 34.4 % (35.0-51.0) L 08/23/17 12:30 MCV 97.0 fl (80.0-94.0) H 08/23/17 12:30 MCH 33.2 pg (27.0-31.0) H 08/23/17 12:30 MCHC 34.2 g/dL (33.0-37.0) 08/23/17 12:30 RDW 15.3 % (11.5-14.5) H 08/23/17 12:30 Plt Count 189 K/uL (130-400) 08/23/17 12:30 MPV 8.9 fl (7.2-11.7) 08/23/17 12:30 Neut % (Auto) 65.7 % (50.0-75.0) 08/23/17 12:30 Lymph % (Auto) 20.1 % (20.0-40.0) 08/23/17 12:30 Irion % (Auto) 10.2 % (0.0-10.0) H 08/23/17 12:30 Eos % (Auto) 3.4 % (0.0-4.0) 08/23/17 12:30 Baso % (Auto) 0.6 % (0.0-2.0) 08/23/17 12:30 Neut # (Auto) 2.9 K/uL (1.8-7.0) 08/23/17 12:30 Lymph # (Auto) 0.9 K/uL (1.0-4.3) L 08/23/17 12:30 Irion # (Auto) 0.5 K/uL (0.0-0.8) 08/23/17 12:30 Eos # (Auto) 0.1 K/uL (0.0-0.7) 08/23/17 12:30 Baso # (Auto) 0.0 K/uL (0.0-0.2) 08/23/17 12:30 PT 12.3 Seconds (9.8-13.1) 08/23/17 12:30 INR 1.1 (0.9-1.2) 08/23/17 12:30 APTT 29.5 Seconds (25.6-37.1) 08/23/17 12:30 Sodium 145 mmol/l (132-148) 08/23/17 12:30 Potassium 5.0 MMOL/L (3.6-5.0) 08/23/17 12:30 Chloride 93 mmol/L (98-107) L 08/23/17 12:30 Carbon Dioxide 38 mmol/L (22-30) H 08/23/17 12:30 Anion Gap 19 (10-20) 08/23/17 12:30 BUN 30 mg/dl (9-20) H 08/23/17 12:30 Creatinine 6.1 mg/dl (0.8-1.5) H 08/23/17 12:30 Est GFR ( Amer) 11 08/23/17 12:30 Est GFR (Non-Af Amer) 9 08/23/17 12:30 POC Glucose (mg/dL) 102 mg/dL (65-110) 08/25/17 16:04 Random Glucose 248 mg/dL (75-110) H 08/23/17 12:30 Calcium 9.6 mg/dL (8.4-10.2) 08/23/17 12:30 Total Bilirubin 0.9 mg/dl (0.2-1.3) 08/23/17 12:30 AST 47 U/L (17-59) 08/23/17 12:30 ALT 28 U/L (21-72) 08/23/17 12:30 Alkaline Phosphatase 98 U/L (38-126) 08/23/17 12:30 Troponin I 0.0880 ng/mL (0.00-0.120) 08/24/17 10:38 Total Protein 7.8 G/DL (6.3-8.2) 08/23/17 12:30 Albumin 4.5 g/dL (3.5-5.0) 08/23/17 12:30 Globulin 3.3 gm/dL (2.2-3.9) 08/23/17 12:30 Albumin/Globulin Ratio 1.4 (1.0-2.1) 08/23/17 12:30 Discharge Exam - Head Exam Head Exam: NORMAL INSPECTION Discharge Plan - Discharge Medications Prescriptions: hydrALAZINE [Apresoline] 100 mg PO Q8 #90 tab - Follow Up Plan Condition: STABLE Disposition: HOME/ ROUTINE
--- NOTE | 2017-08-25 17:51 | CP.PCM.DIS ---
Provider - Provider Date of Admission: 08/23/17 14:37 Attending physician: Kip Minor MD Primary care physician: Dr. Minor Consults: cardiology - Dr. Weems nephrology - Dr. Sahni Time Spent in preparation of Discharge (in minutes): 30 Diagnosis - Discharge Diagnosis (1) Chest pain Status: Acute (2) CAD (coronary artery disease), autologous vein bypass graft Status: Chronic (3) DM type 2 (diabetes mellitus, type 2) Status: Chronic (4) ESRD (end stage renal disease) Status: Chronic (5) Hypertension Status: Chronic Hospital Course - Lab Results Lab Results: Most Recent Lab Values WBC 4.4 K/uL (4.8-10.8) L 08/23/17 12:30 RBC 3.54 Mil/uL (4.40-5.90) L 08/23/17 12:30 Hgb 11.8 g/dL (12.0-18.0) L 08/23/17 12:30 Hct 34.4 % (35.0-51.0) L 08/23/17 12:30 MCV 97.0 fl (80.0-94.0) H 08/23/17 12:30 MCH 33.2 pg (27.0-31.0) H 08/23/17 12:30 MCHC 34.2 g/dL (33.0-37.0) 08/23/17 12:30 RDW 15.3 % (11.5-14.5) H 08/23/17 12:30 Plt Count 189 K/uL (130-400) 08/23/17 12:30 MPV 8.9 fl (7.2-11.7) 08/23/17 12:30 Neut % (Auto) 65.7 % (50.0-75.0) 08/23/17 12:30 Lymph % (Auto) 20.1 % (20.0-40.0) 08/23/17 12:30 [place] % (Auto) 10.2 % (0.0-10.0) H 08/23/17 12:30 Eos % (Auto) 3.4 % (0.0-4.0) 08/23/17 12:30 Baso % (Auto) 0.6 % (0.0-2.0) 08/23/17 12:30 Neut # (Auto) 2.9 K/uL (1.8-7.0) 08/23/17 12:30 Lymph # (Auto) 0.9 K/uL (1.0-4.3) L 08/23/17 12:30 [place] # (Auto) 0.5 K/uL (0.0-0.8) 08/23/17 12:30 Eos # (Auto) 0.1 K/uL (0.0-0.7) 08/23/17 12:30 Baso # (Auto) 0.0 K/uL (0.0-0.2) 08/23/17 12:30 PT 12.3 Seconds (9.8-13.1) 08/23/17 12:30 INR 1.1 (0.9-1.2) 08/23/17 12:30 APTT 29.5 Seconds (25.6-37.1) 08/23/17 12:30 Sodium 145 mmol/l (132-148) 08/23/17 12:30 Potassium 5.0 MMOL/L (3.6-5.0) 08/23/17 12:30 Chloride 93 mmol/L (98-107) L 08/23/17 12:30 Carbon Dioxide 38 mmol/L (22-30) H 08/23/17 12:30 Anion Gap 19 (10-20) 08/23/17 12:30 BUN 30 mg/dl (9-20) H 08/23/17 12:30 Creatinine 6.1 mg/dl (0.8-1.5) H 08/23/17 12:30 Est GFR ( Amer) 11 08/23/17 12:30 Est GFR (Non-Af Amer) 9 08/23/17 12:30 POC Glucose (mg/dL) 102 mg/dL (65-110) 08/25/17 16:04 Random Glucose 248 mg/dL (75-110) H 08/23/17 12:30 Calcium 9.6 mg/dL (8.4-10.2) 08/23/17 12:30 Total Bilirubin 0.9 mg/dl (0.2-1.3) 08/23/17 12:30 AST 47 U/L (17-59) 08/23/17 12:30 ALT 28 U/L (21-72) 08/23/17 12:30 Alkaline Phosphatase 98 U/L (38-126) 08/23/17 12:30 Troponin I 0.0880 ng/mL (0.00-0.120) 08/24/17 10:38 Total Protein 7.8 G/DL (6.3-8.2) 08/23/17 12:30 Albumin 4.5 g/dL (3.5-5.0) 08/23/17 12:30 Globulin 3.3 gm/dL (2.2-3.9) 08/23/17 12:30 Albumin/Globulin Ratio 1.4 (1.0-2.1) 08/23/17 12:30 - Hospital Course Hospital Course: 66 yo M with PMH HTN, DM2, ESRD (HD MWF) admitted due to chest pain he experienced after dialysis on Wednesday 08/23. EKG showed no acute changes and 3 troponin were negative. Pt had elevated BP readings during hospitalization- director operations broadcast recommended cozaar 100 mg daily. Hydralazine 100 mg TID was also added to control BP. Pt's BP this am was 189/72 - after medication, BP measured by chart writer was 163/65 at 1:55 pm. When examined, he was in good spirits, in no acute distress, and did not have any focal complaint. Pt received dialysis while admitted; and will be d/c after completion of dialysis today. He will resume home meds with addition of hydralazine and cozaar. Discharge Exam - Head Exam Head Exam: NORMAL INSPECTION - Eye Exam Eye Exam: Normal appearance - ENT Exam ENT Exam: Mucous Membranes Moist - Respiratory Exam Respiratory Exam: Clear to PA & Lateral - Cardiovascular Exam Cardiovascular Exam: REGULAR RHYTHM - GI/Abdominal Exam GI & Abdominal Exam: Normal Bowel Sounds, Soft - Extremities Exam Additional comments: AV fistula RUE - Neurological Exam Neurological exam: Alert, Normal Gait, Oriented x3 - Psychiatric Exam Psychiatric exam: Normal Mood Discharge Plan - Discharge Medications Prescriptions: hydrALAZINE [Apresoline] 100 mg PO Q8 #90 tab Losartan [Cozaar] 100 mg PO DAILY #30 tab - Follow Up Plan Condition: STABLE Disposition: HOME/ ROUTINE Additional Instructions: Please follow up with PMD Dr. Minor in 1 week. New medications: hydralazine and cozaar- sent to your pharmacy. Return to ED with any new onset chest pain, shortness of breath Referrals: Kip Minor MD [Staff Provider] -
[2017-08-25 20:20] VITALS: BP 137/74; PULSE 66; RESP 18; TEMP 97.9
[2017-08-29] MEDS ORDERED: Ergocalciferol 50,000 Intl Units Cap PO SCH (09:00)
== END 2017-08-25 20:35 | disposition home or self-care (01) ==
LOC: H.ER 11:11 → H.ERHOLD 14:37 → H.TEL 17:58
PROVIDERS: ADMIT Family Medicine; ATTEND Family Medicine
DX: R07.9 Chest pain, unspecified (principal); I25.10 Atherosclerotic heart disease of native coronary artery without angina pectoris; N18.6 End stage renal disease; I12.0 Hypertensive chronic kidney disease with stage 5 chronic kidney disease or end stage renal disease; E11.22 Type 2 diabetes mellitus with diabetic chronic kidney disease; N25.81 Secondary hyperparathyroidism of renal origin; E11.319 Type 2 diabetes mellitus with unspecified diabetic retinopathy without macular edema; E83.39 Other disorders of phosphorus metabolism; D64.9 Anemia, unspecified; Z99.2 Dependence on renal dialysis; Z95.1 Presence of aortocoronary bypass graft; Z79.82 Long term (current) use of aspirin; Z88.6 Allergy status to analgesic agent; Z88.0 Allergy status to penicillin
CPT/HCPCS: 36415; 71045; 80053; 82948; 84484; 85025; 85610; 85730; 90999; 93005; 99285; G0378; J1644